=== PATIENT | female | born 1980 | race Caucasian/White ===

== ENCOUNTER 2023-06-04 19:30 | Emergency (ER) | payer SELFPAY ==
[~2023-06-04] VITALS: Ht 162.6 cm; Wt 59.0 kg
[2023-06-04 19:46] VITALS: BP 137/72; PULSE 118; RESP 20; TEMP 99; O2SAT 16
[2023-06-04] MEDS: KETOROLAC 60MG/2ML VIAL IM ONE (20:27)
[2023-06-04 20:42] LABS: CLARITY URINE CLOUDY (CLEAR); COLOR URINE YELLOW (YELLOW); GLUCOSE URINE NEGATIVE (NEGATIVE); KETONES URINE NEGATIVE (NEGATIVE); LEUKOCYTE ESTERASE URINE 2+ (NEGATIVE); NITRITE URINE NEGATIVE (NEGATIVE); OCCULT BLOOD URINE TRACE (NEGATIVE); PH URINE 6.5 (4.5-8.0); PROTEIN URINE 2+ (NEGATIVE); SPECIFIC GRAVITY URINE 1.013 (1.005-1.030)
[2023-06-04 21:15] LABS: BACTERIA URINE 1+; RBC URINE 0-2 /hpf (0-2); SQUAMOUS EPITHELIAL CELL URINE 1+ /lpf (RARE/1+); TRICHOMONAS URINE 1+
[2023-06-05] MEDS ORDERED: CEPH500C2 MT (06:13)
[2023-06-05] MEDS ORDERED: ACET-2708 MT (06:13)
[2023-06-05] MEDS ORDERED: METO-293 MT (06:13)
== END 2023-06-04 21:03 | disposition home or self-care (01) ==
LOC: ER 19:30
DX: G89.29 Other chronic pain (principal); M54.50 Low back pain, unspecified
CPT/HCPCS: 80053; 81003; 81025; 84703; 99283

== ENCOUNTER 2023-06-05 00:24 | Emergency (ER) | payer SELFPAY ==
[~2023-06-05] VITALS: Ht 162.6 cm; Wt 59.0 kg
[2023-06-05 00:49] VITALS: O2SAT 97
[2023-06-05 01:36] LABS: BASOPHILS % 0.2 % (0.0-2.0); DIFFERENTIAL COMMENT 0; EOSINOPHILS % 0.4 % (0.0-5.0); HEMATOCRIT. 30.5 % (36.0-48.0); HEMOGLOBIN. 10.3 g/dL (12.0-16.0); LYMPHOCYTES % 8.5 % (20.0-50.0); MEAN CORPUSCULAR HEMOGLOBIN 29.6 pg (28.0-32.0); MEAN CORPUSCULAR HGB CONC 33.8 g/dL (31.0-37.0); MEAN CORPUSCULAR VOLUME 87.6 fL (81.0-99.0); MEAN PLATELET VOLUME 8.3 fl (7.4-10.4); MONOCYTES % 11.4 % (2.0-8.0); NEUTROPHILS % 79.5 % (40.0-76.0); PLATELET 224 x1000/uL (130-400); RED BLOOD CELL COUNT 3.48 mill/uL (4.2-5.4); RED CELL DISTRIBUTION WIDTH 15.2 % (11.6-14.6); WHITE BLOOD COUNT 9.9 x1000/uL (4.5-11.0)
[2023-06-05 01:45] LABS: ALANINE AMINOTRANSFERASE 24 IU/L (10-49); ALBUMIN 3.6 g/dL (3.2-4.8); ASPARTATE AMINOTRANSFERASE 15 IU/L (<34); BILIRUBIN TOTAL 0.8 mg/dL (0.1-1.0); CARBON DIOXIDE 22 mEq/L (21-32); CHLORIDE 103 mEq/L (98-107); CREATININE 0.8 mg/dL (0.6-1.0); GLUCOSE 91 mg/dL (70-105); POTASSIUM 3.4 mEq/L (3.5-5.1); SODIUM 132 mEq/L (136-145); TROPONIN I HIGH SENSITIVITY 6 ng/L (3.0-34); UREA NITROGEN BLOOD 17 mg/dL (9-23)
[2023-06-05 02:07] LABS: HCG SCREEN NEGATIVE
[2023-06-05 03:42] VITALS: TEMP 99.4
[2023-06-05] MEDS: METOCLOPRAMIDE HCL 10MG/2ML VIAL IM NR (03:42)
[2023-06-05] MEDS: ACETAMINOPHEN 325MG TABLET PO NR (03:42)
[2023-06-05 03:44] VITALS: BP 124/78; PULSE 121; RESP 23
[2023-06-05] MEDS: KETOROLAC 60MG/2ML VIAL IM NR (03:44)
[2023-06-05 04:38] LABS: CLARITY URINE CLOUDY (CLEAR); COLOR URINE YELLOW (YELLOW); GLUCOSE URINE NEGATIVE (NEGATIVE); KETONES URINE NEGATIVE (NEGATIVE); LEUKOCYTE ESTERASE URINE 3+ (NEGATIVE); NITRITE URINE NEGATIVE (NEGATIVE); OCCULT BLOOD URINE TRACE (NEGATIVE); PH URINE 6.5 (4.5-8.0); PROTEIN URINE 1+ (NEGATIVE); SPECIFIC GRAVITY URINE 1.008 (1.005-1.030); UROBILINOGEN URINE 0.2 E.U./dL (0.2-1.0)
[2023-06-05 05:51] LABS: BACTERIA URINE TRACE; RBC URINE 0-2 /hpf (0-2); SQUAMOUS EPITHELIAL CELL URINE FEW /lpf (RARE/1+)
[2023-06-05] MEDS ORDERED: CEPH500C2 MT (06:13)
[2023-06-05] MEDS ORDERED: METO-293 MT (06:13)
[2023-06-05] MEDS ORDERED: ACET-2708 MT (06:13)
== END 2023-06-05 07:22 | disposition home or self-care (01) ==
LOC: ER 00:24
DX: G43.909 Migraine, unspecified, not intractable, without status migrainosus (principal); Z59.00 Homelessness unspecified; D64.9 Anemia, unspecified; F14.90 Cocaine use, unspecified, uncomplicated
CPT/HCPCS: 99284; 80053; 81003; 84703; 83690; 85025; 84484; 36415; 93005; 96372; J1885; J2765